=== PATIENT | female | born 1980 ===

== ENCOUNTER 2017-06-26 19:25 | Emergency (ER) | payer MEDICAID, OTHER ==
[2017-06-26 19:38] VITALS: BP 131/98; PULSE 90; RESP 20; TEMP 97.1; O2SAT 97
[2017-06-26] MEDS ORDERED: TDAP Vaccine 0.5 mL Syr IM ONE (19:45)
[2017-06-26] MEDS ORDERED: Bacitracin 500 Units/gm Oint Foilpak UD TOP ONE (19:45)
[2017-06-26] MEDS ORDERED: Oxycodone/Acetaminophen 5/325 mg Tab PO STA (19:46)
--- NOTE | 2017-06-26 19:48 | ED PDOC ---
Arrival/HPI - General Chief Complaint: Burn Time Seen by Provider: 06/26/17 19:38 Historian: Patient - History of Present Illness Narrative History of Present Illness (Text): 06/26/17 19:38 Louise Carroll is a 37 year old female who presents to the emergency department complaining of a large burn to her right forearm that occurred prior to arrival. Patient states that as she was cooking pasta and went to transfer the pasta to a colander, she accidentally spilled boiling water on her right arm instead. No other complaints at this time. Patient notes that she does not recall the last time she received a tetanus shot. Time/Duration: Prior to Arrival Symptom Onset: Sudden Symptom Course: Unchanged Context: Home Past Medical History - Provider Review Nursing Documentation Reviewed: Yes - Cardiac Hx Cardiac Disorders: No - Pulmonary Hx Respiratory Disorders: Yes Hx Asthma: Yes - Neurological Hx Neurological Disorder: No - HEENT Hx HEENT Disorder: No - Renal Hx Renal Disorder: No - Endocrine/Metabolic Hx Endocrine Disorders: No - Hematological/Oncological Hx Blood Disorders: No - Integumentary Hx Dermatological Disorder: No - Musculoskeletal/Rheumatological Hx Musculoskeletal Disorders: No - Gastrointestinal Hx Gastrointestinal Disorders: No - Genitourinary/Gynecological Hx Genitourinary Disorders: No - Psychiatric Hx Psychophysiologic Disorder: No Hx Substance Use: No - Anesthesia Hx Anesthesia: No Family/Social History - Physician Review Nursing Documentation Reviewed: Yes Family/Social History: No Known Family HX Smoking Status: Never Smoked Hx Alcohol Use: No Hx Substance Use: No Allergies/Home Meds Allergies/Adverse Reactions: Allergies No Known Allergies Allergy (Verified 06/26/17 19:29) Review of Systems - Physician Review All systems were reviewed & negative as marked: Yes - Review of Systems Constitutional: absent: Fevers, Night Sweats Eyes: absent: Vision Changes ENT: absent: Hearing Changes Respiratory: absent: SOB, Cough Cardiovascular: absent: Chest Pain Gastrointestinal: absent: Abdominal Pain Genitourinary Female: absent: Dysuria, Frequency Musculoskeletal: absent: Arthralgias Skin: Other (Burn to right forearm) Neurological: absent: Headache, Dizziness Endocrine: absent: Diaphoresis Hemo/Lymphatic: absent: Adenopathy Psychiatric: absent: Anxiety, Depression Physical Exam Vital Signs Reviewed: Yes Vital Signs Temp Pulse Resp BP Pulse Ox 06/26/17 19:29 97.1 F L 90 20 131/98 H 97 Temperature: Afebrile Blood Pressure: Hypertensive Pulse: Regular Respiratory Rate: Normal Mental Status: Positive for: Alert and Oriented X 3 - Systems Exam Head: Present: Atraumatic, Normocephalic Pupils: Present: PERRL Extroacular Muscles: Present: EOMI Conjunctiva: Present: Normal Mouth: Present: Moist Mucous Membranes Neck: Present: Normal Range of Motion Respiratory/Chest: Present: Clear to Auscultation, Good Air Exchange. No: Respiratory Distress, Accessory Muscle Use Cardiovascular: Present: Regular Rate and Rhythm, Normal S1, S2. No: Murmurs Abdomen: No: Tenderness, Distention, Peritoneal Signs Back: Present: Normal Inspection Upper Extremity: Present: Other (circumferential burn to right forearm; 6% total body surface area; [id number] blister at the bottom still intact; primarily second degree) Lower Extremity: Present: Normal Inspection. No: Edema Neurological: Present: GCS=15, CN II-XII Intact, Speech Normal Skin: Present: Warm, Dry, Normal Color. No: Rashes Psychiatric: Present: Alert, Oriented x 3, Normal Insight, Normal Concentration Medical Decision Making ED Course and Treatment: 06/26/17 19:50 Impression: 37 year old female complaining of a large burn to her right forearm that occurred prior to arrival. Plan: -- Bacitracin, Zofran, Percocet, and Boostrix Vaccine -- Reassess and disposition Progress Notes: - Medication Orders Current Medication Orders: Discontinued Medications Bacitracin (Bacitracin) 1 ea TOP ONCE ONE Stop: 06/26/17 19:46 Ondansetron HCl (Zofran Odt) 4 mg PO STAT STA Stop: 06/26/17 19:46 Oxycodone/Acetaminophen (Percocet 5/325 Mg Tab) 2 tab PO STAT STA Stop: 06/26/17 19:47 Tetanus/Reduced Diphtheria/Acell Pertussis (Boostrix Vaccine Inj) 0.5 ml IM .ONCE ONE Stop: 06/26/17 19:46 - PA / PRINCIPAL INVESTIGATOR / Resident Statement MD/DO has reviewed & agrees with the documentation as recorded. - Scribe Statement The provider has reviewed the documentation as recorded by the Steve Grey Provider Scribe Attestation: All medical record entries made by the Helderibe were at my direction and personally dictated by me. I have reviewed the chart and agree that the record accurately reflects my personal performance of the history, physical exam, medical decision making, and the department course for this patient. I have also personally directed, reviewed, and agree with the discharge instructions and disposition. Disposition/Present on Arrival - Present on Arrival Any Indicators Present on Arrival: No History of DVT/PE: No History of Uncontrolled Diabetes: No Urinary Catheter: No History of Decub. Ulcer: No History Surgical Site Infection Following: None - Disposition Have Diagnosis and Disposition been Completed?: Yes Diagnosis: 2nd deg burn arm Disposition: HOME/ ROUTINE Disposition Time: 19:55 Patient Plan: Discharge Patient Problems: Current Active Problems Problem Status Onset 2nd deg burn arm Acute Condition: GOOD Discharge Instructions (ExitCare): Skin Carter (DC) Additional Instructions: Louise - I am so sorry this happened to you tonight..... I KNOW IT HURTS. Percocet is for bad pain, you can take motrin [but avoid tylenol, it is already in the percocet] Percocet will upset your stomach. Zofran ODT is for your upset stomach. Cleocin [Clindamycin] is an antibiotic you take four times a day. You have to follow up tomorrow at [facility] Address: [address] [place] [address], [place] [address] Return to us if any problems. [place]- Dr. Aj Mora Prescriptions: Clindamycin [Cleocin] 300 mg PO QID #40 cap Ondansetron ODT [Zofran ODT] 8 mg PO TID #30 odt oxyCODONE/Acetaminophen [Percocet 5/325 mg Tab] 1 tab PO QID #20 tab Forms: [facility] (Latvian), WORK NOTE, SCHOOL NOTE
== END 2017-06-26 21:01 | disposition home or self-care (01) ==
LOC: ED 19:25
DX: T22.211A Burn of second degree of right forearm, initial encounter (principal); X12.XXXA Contact with other hot fluids, initial encounter; Y93.G3 Activity, cooking and baking; Y92.009 Unspecified place in unspecified non-institutional (private) residence as the place of occurrence of the external cause; Z23 Encounter for immunization